=== PATIENT | female | born 1960 | race Caucasian/White ===

== ENCOUNTER → 2016-09-08 | Outpatient (CLI) | payer BC ==
[~2016-09-08] MED LIST: AMT25 PO; AMT50 PO; ASPEC325 PO; ASPI-113 PO; ATOR-22 PO; FLUO20CA34 PO; FLUO20CA35 PO; LISI-729 PO; LOSA1TAB PO; OXYC-57 PO; SIMV40TA2 PO
[2016-09-08 11:07] LABS: HEMATOCRIT 39.9 % (37-47); MEAN CELL VOLUME 89.9 fL (80-100); MEAN CORPUSCULAR HEMOGLOBIN 29.7 pg (25-34); MEAN CORPUSCULAR HGB CONC 33.1 g/dl (32-36); MEAN PLATELET VOLUME 9.1 fL (7.4-10.4); PLATELET COUNT 292 K/uL (130-400); RED BLOOD COUNT 4.44 M/uL (4.2-5.4); WHITE BLOOD COUNT 5.22 K/uL (4.8-10.8)
[2016-09-08 11:31] LABS: POTASSIUM 3.8 mmol/L (3.5-5.1)
== END | disposition home or self-care (01) ==
LOC: C.CPL 10:31
PROVIDERS: ATTEND Orthopaedic Surgery Sports Medicine
DX: Z01.810 Encounter for preprocedural cardiovascular examination (principal)

== ENCOUNTER → 2016-10-01 | Day surgery (SDC) | payer BC ==
[2016-09-29 11:33] VITALS: Ht 172.7 cm; Wt 76.8 kg
[~2016-10-01] VITALS: Ht 172.7 cm; Wt 76.8 kg
[~2016-10-01] MED LIST changes: -AMT25 PO; +BUPIVACAINE 0.5 % 5 MG/1 ML MPF 30ML VIAL ONE; +CEFAZOLIN 1000MG/55 ML D5W IV SCH; +CEFAZOLIN SOD 1 GM VIAL ONE; +CEFAZOLIN SOD 1000MG/55 ML D5W IV ONE; +DEXAMETHASONE SOD INJ 4 MG/ML VIAL ONE; +FENTANYL CITRATE INJ 50 MCG/1 ML 2 ML VIAL ONE; +LACTATED RINGER'S 1000ML 1,000 ML IV SCH; +LIDOCAINE HCL 1% 20 ML VIAL ONE; +LIDOCAINE HCL 2% 2 ML VIAL (20MG/ML) ONE; -LISI-729 PO; +MIDAZOLAM HCL 1 MG/ML 2ML VIAL ONE; +ONDANSETRON INJ 2 MG/ML 2 ML VIAL ONE; +OXYCODONE/ACETAMINOPHEN 5-325 TAB PO PRN; +PROPOFOL IV EMULSION 10 MG/ML 20 ML VIAL IV ONE; -SIMV40TA2 PO; +SODIUM CHLORIDE 0.9% 1000ML 1,000 ML IV SCH
--- NOTE | 2016-10-01 11:45 | History & Physical Bridge - [place] ---
H&P Re-Evaluation Bridge Note: I have examined the patient, reviewed the History & Physical and in the interval since the performance of the History & Physical I have noted the following changes of clinical significance: No changes noted
--- NOTE | 2016-10-01 15:50 | Discharge Instructions-SurgCtr ---
Discharge Instructions Date of Service Oct 01, 2016. 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 Post Anesthesia Instructions: If you have had General Anesthesia or IV Sedation: * Do not drive today. * Resume driving when surgeon permits. * Do not make important decisions or sign legal documents today. * Call surgeon for: 1. Temperature elevations greater than 101 degrees F. 2. Uncontrollable pain. 3. Excessive bleeding. 4. Persistent nausea and vomiting. 5. Medication intolerance (nausea, vomiting or rash). * For nausea and vomiting use only clear liquids such as: tea, soda, bouillon until nausea subsides, then gradually increase diet as tolerated. * If you have any concerns or questions, call your surgeon's office. If physician is unavailable and it is an emergency, call 911 or go to the nearest emergency room. . Instructions / Follow-Up Instructions / Follow-Up MEDICATIONS: * Resume previous medications unless instructed otherwise by your surgeon. * Always take pain medication on a full stomach or with food to avoid upset stomach. * Do not drink alcohol or drive while taking narcotics. * Ibuprofen or Tylenol may be taken if narcotic not needed. SPECIAL CARE INSTRUCTIONS: __ None _x_ Keep extremity elevated and iced x 48 hours; apply ice 20-30 minutes 8-10 times/day. May remove at night. __ Crutches __ May discard when able _x_ Brace/Post-op shoe __ 24 hrs/day __ Remove at night _x_ Dressing _x_ Maintain until seen in office, may shower with plastic over site __ Remove dressings in 24-48 hours and then may shower __ Cover incisions with band-aids after showering __ Do not remove steri-strips Call physician if chills or temperature rises above 102 degrees or pain unrelieved by prescribed pain medications. Office [phone] follow up in 2 weeks Diet Recommendations Home Diet: resume previous diet Procedures Procedures Performed: Right 1st Metatarsophalangeal Arthrodesis Pending Studies Studies pending at discharge: no Medical Emergencies . Who to Call and When: Medical Emergencies: If at any time you feel your situation is an emergency, please call 911 immediately. . Non-Emergent Contact Non-Emergency issues call your: Primary Care Provider, Surgeon . . "Provider Documentation" section prepared by Dalton Swanson.
[2016-10-01 16:22] VITALS: TEMP 36.8
--- NOTE | 2016-10-01 16:27 | [facility] Post Operative Brief Note ---
Immediate Operative Summary Operative Date Oct 01, 2016. Pre-Operative Diagnosis Osteoarthritis of Foot Joint Right Great Toe Post-Operative Diagnosis Same Procedure(s) Performed Right 1st Metatarsophalangeal Arthrodesis Surgeon Dr. Sellers Director Paid Media Surgeon(s) Maureen Swanson PA-C Estimated Blood Loss 20CC Findings Right 1st MTP DJD Specimens None Anesthesia General Complication(s) None Disposition Recovery Room / PACU
[2016-10-01 16:42] VITALS: BP 108/72; PULSE 89; O2SAT 98
--- NOTE | 2016-10-01 16:42 | Anesthesia Progress Nt - [facility] ---
Anesthesia Post Op Note Date & Time Oct 01, 2016 at 16:41 Vital Signs Pain Intensity: 0 Vital Signs Past 12 Hours Date Time Temp Pulse Resp B/P Pulse Ox O2 Delivery O2 Flow Rate FiO2 10/01/16 16:22 36.8 92 18 113/75 97 Room Air 10/01/16 16:20 125/75 10/01/16 16:17 86 11 10/01/16 16:17 85 11 99 10/01/16 16:16 37.1 98 Room Air 10/01/16 16:16 87 16 10/01/16 16:16 86 16 10/01/16 16:15 86 10 10/01/16 16:15 86 10 94 10/01/16 16:14 123/79 10/01/16 16:11 82 12 10/01/16 16:11 82 12 100 10/01/16 16:10 117/74 10/01/16 16:06 83 13 10/01/16 16:06 82 13 94 10/01/16 16:05 116/73 10/01/16 16:01 81 13 10/01/16 16:01 80 13 100 10/01/16 16:00 125/75 10/01/16 15:59 81 10 100 10/01/16 15:59 80 10 10/01/16 15:55 120/72 10/01/16 15:54 84 14 100 10/01/16 15:54 84 14 10/01/16 15:50 120/67 10/01/16 15:49 88 12 100 10/01/16 15:49 87 12 10/01/16 15:45 115/73 10/01/16 15:44 37.3 89 12 109/73 100 Mask 6 10/01/16 15:44 90 10/01/16 15:44 90 100 10/01/16 11:54 36.6 89 20 129/82 96 Room Air Notes Mental Status: alert / awake / arousable, participated in evaluation Pt Amnestic to Procedure: Yes Nausea / Vomiting: adequately controlled Pain: adequately controlled Airway Patency, RR, SpO2: stable & adequate BP & HR: stable & adequate Hydration State: stable & adequate Anesthetic Complications: no major complications apparent
--- NOTE | 2016-10-01 23:53 | OPERATIVE REPORT ---
DATE OF OPERATION: 10/01/2016 SURGEON: Dr. Sree Sellers. MILLER DISTILLERY: CLIVE Vallejo PREOPERATIVE DIAGNOSIS: Right first metatarsophalangeal joint degenerative joint disease. POSTOPERATIVE DIAGNOSIS: Same. PROCEDURE PERFORMED: Right first MTP joint arthrodesis. COMPLICATIONS: None. ESTIMATED BLOOD LOSS: 20 mL TOURNIQUET TIME: 86 minutes at 300 mmHg. ANESTHESIA: General. SPECIMENS: None. OPERATIVE INDICATIONS: The patient is a 56-year-old female who has had a long history of right first MTP joint pain and discomfort. She has been through extensive conservative treatment including medicines as well as injections. She continued to have persistent pain. She elected to proceed with arthrodesis. OPERATIVE FINDINGS: Operative findings revealed advanced right first MTP joint DJD. She had extensive osteophytes around the joint. She had grade 4 djee-ox-ldei disease. OPERATIVE IMPLANTS: Operative implants consisted of: 1. A titanium 4.0 partially threaded cannulated screw of 32 mm length. 2. A.L.P.S. 2.5 mm first MTP joint fusion plate. 3. 2.5 mm titanium locking screws, one of 16 mm length, one of 18 mm length, and one of 24 mm length. 4. 2.5 mm titanium nonlocking/cortical screws, two of 16 mm length and one of 22 mm length. 5. 2.5 titanium multidirectional locking screw of 22 mm length. OPERATIVE PROCEDURE: The patient was taken to the operating room, identified and placed on the operating table in supine position. All contact areas were appropriately padded. IV antibiotics were provided by anesthesia team. General anesthetic was implemented by anesthesia team. A right thigh tourniquet was then placed. The right ankle was then cleaned with some alcohol and ankle block was provided with 30 mL of a 50:50 combination of 0.5% Marcaine and 2% lidocaine. Right foot and leg were then prepped and draped in usual sterile fashion. The right leg was elevated and exsanguinated with Esmarch and tourniquet was placed at 300 mmHg. A longitudinal incision was made over the dorsal medial aspect of the MTP joint, beginning just proximal to the IP joint and extending over the MTP joint and over the first metatarsal. Sharp dissection was carried out through the subcutaneous tissues down to the level of the joint capsule. An incision was made in the joint capsule about 3 mm medially until the EHL tendon. I then dissected the joint capsule off the bone and off the osteophytes. I then did a synovectomy. I then removed the osteophytes around the metatarsal head as well as the proximal phalanx. I mobilized the great toe. Once this was complete, attention then drawn toward preparing the bone surfaces. A guidewire was placed in the central aspect of the metatarsal head. I then reamed this first with a 22 mm reamer, followed by the 20 mm reamer which fit most appropriately. We reamed this down to the subchondral bone and cancellous bone. I then removed the guidewire and used it to create several additional holes through the metatarsal head. Attention was then drawn to the proximal phalanx. The proximal phalanx was maximally flexed. A guidewire was placed in the central aspect of the proximal phalanx articular surface. I then used the 20 mm reamer to create an opposing surface for the fusion. We reamed through the subchondral bone to the bleeding bone. I then also took the guidewire out and used it to create several additional holes in the proximal phalanx for bleeding and bone healing. I then took the guidewire for the 4.0 cannulated screw set and placed it in the central aspect of the metatarsal head and angling proximally and medially, just proximal to the prominence of the metatarsal head to allow an oblique pass. I then withdrew this proximally, reduced the first MTP joint in appropriate position and then placed a guidewire across the joint. I made sure the toe was appropriately rotated and in a slight valgus and 10 degrees of dorsiflexion relative to the surface of the floor. We assessed the position and it appeared appropriate both fluoroscopically as well as clinically. I then placed a 4.0 x 32 mm partially threaded cannulated screw over this guidewire. This did provide nice compression of the fusion site. I then slightly contoured a 2.5 right A.L.P.S. first MTP joint fusion plate to the dorsal surface of the first MTP joint. It was fixed initially with a 2.5 cortical screw through the oblong hole. I made sure position was appropriate and then fixed it distally with 2 additional 2.5 cortical screws and 1 additional locking screw distally. I then fixed it proximally with 2 additional 2.5 locking screws and 1 variable angle locking screw. X-rays were brought in. Everything was appropriately positioned. Attention was then drawn toward closing. The wound was irrigated with copious amounts of normal saline. I did place some bone from the osteophytes around the fusion site, particularly laterally. I then closed the joint capsule with 2-0 Vicryl suture in a [id number] fashion. The tourniquet was then let down for a tourniquet time of 86 minutes. Hemostasis was assured with use of electrocautery. The subcutaneous tissues were then closed with 2-0 Vicryl suture in a buried interrupted fashion. Skin was closed with 4-0 nylon suture in a horizontal mattress fashion. The foot was then cleaned and dried, and a sterile dressing with Xeroform, 4 x 4's, Uri wrap, followed by sterile cast padding and Coban tape, followed by an IPost shoe were applied. The patient then brought out of general anesthesia and transferred to the recovery room in stable condition. The patient tolerated the procedure well with no complications. All needle and sponge counts were correct at the end of the operation. I attest to the content of the Intraoperative Record and any orders documented therein. Any exceptio ns are noted below.
== END | disposition home or self-care (01) ==
LOC: X.SURG 11:37
PROVIDERS: ATTEND Orthopaedic Surgery Sports Medicine
DX: M19.071 Primary osteoarthritis, right ankle and foot (principal); I10 Essential (primary) hypertension; E78.5 Hyperlipidemia, unspecified; Z98.890 Other specified postprocedural states

== ENCOUNTER → 2017-05-25 | Outpatient (CLI) | payer BC ==
[~2017-05-25] MED LIST changes: -ASPI-113 PO; -BUPIVACAINE 0.5 % 5 MG/1 ML MPF 30ML VIAL ONE; -CEFAZOLIN 1000MG/55 ML D5W IV SCH; -CEFAZOLIN SOD 1 GM VIAL ONE; -CEFAZOLIN SOD 1000MG/55 ML D5W IV ONE; -DEXAMETHASONE SOD INJ 4 MG/ML VIAL ONE; -FENTANYL CITRATE INJ 50 MCG/1 ML 2 ML VIAL ONE; -LACTATED RINGER'S 1000ML 1,000 ML IV SCH; -LIDOCAINE HCL 1% 20 ML VIAL ONE; -LIDOCAINE HCL 2% 2 ML VIAL (20MG/ML) ONE; -MIDAZOLAM HCL 1 MG/ML 2ML VIAL ONE; -ONDANSETRON INJ 2 MG/ML 2 ML VIAL ONE; -OXYC-57 PO; -OXYCODONE/ACETAMINOPHEN 5-325 TAB PO PRN; -PROPOFOL IV EMULSION 10 MG/ML 20 ML VIAL IV ONE; -SODIUM CHLORIDE 0.9% 1000ML 1,000 ML IV SCH
--- NOTE | 2017-05-25 15:03 | MAMMOGRAPHY REPORT ---
UNILATERAL RIGHT DIGITAL DIAGNOSTIC MAMMOGRAM TOMOSYNTHESIS AND TARGETED RIGHT ULTRASOUND: 05/25/2017 CLINICAL HISTORY: 57-year-old woman called back from screening mammography for a possible area of arc hitectural distortion in the right breast. TECHNIQUE: Spot compression right CC and MLO tomosynthesis images and reconstructed C-view were obtai lucila. COMPARISON: Comparison is made to exams dated: 05/12/2017 mammogram, 05/08/2016 mammogram, 5 mammogram, 03/20/2014 mammogram, 03/17/2013 mammogram, and 03/09/2012 mammogram - [facility]. BREAST COMPOSITION: The tissue of the right breast is almost entirely fatty. FINDINGS: There is persistent small focal area of architectural distortion in the upper outer middle one third of the right breast, 5.8 cm distal to the nipple seen on CC spot compression tomosynthesis slice 34 and MLO spot compression tomosynthesis slice 34. No microcalcification, other areas of dis tortion or obvious masses seen. Further evaluation with ultrasound was performed. Targeted ultrasound was performed in the right upper outer quadrant. No definite sonographic correla te for the mammographic finding. No subtle area of architectural distortion or suspicious solid or c ystic masses seen. The distortion remains indeterminate and definitive characterization with a stere otactic tomosynthesis guided biopsy is recommended. IMPRESSION: ACR BI-RADS CATEGORY 4: SUSPICIOUS, TARGETED ULTRASOUND ACR BI-RADS CATEGORY 4: SUSPICIO US 1. Right breast stereotactic tomosynthesis guided biopsy is recommended for a small subtle focal are a of architectural distortion in the upper outer middle one third of the right breast. The patient i s currently taking aspirin for prior stroke and I would recommend remaining on aspirin for the biopsy , noting that the patient may have more bleeding and bruising at the time of biopsy. These results and recommendations were discussed with the patient at the time of the exam. She tenta tively scheduled the biopsy prior to leaving our department. Approximately 10% of breast cancers are not detected with mammography. A negative mammographic report should not delay biopsy if a clinically suggestive mass is present. Jo-Ann Robertson M.D. ay/:05/25/2017 11:49:59 It Corporate Recruiter: Meghan PINEDA(Valarie)(M), [facility] letter sent: Abnormal 4/5 BI-RADS Code: ACR BI-RADS Category 4: Suspicious Ultrasound BI-RADS: ACR BI-RADS Category 4: Suspici ous
== END | disposition home or self-care (01) ==
LOC: C.MAMM 08:32
PROVIDERS: ATTEND Family Medicine
DX: R92.8 Other abnormal and inconclusive findings on diagnostic imaging of breast (principal)

== ENCOUNTER → 2017-06-08 | Outpatient (CLI) | payer BC ==
--- NOTE | 2017-06-08 13:15 | Discharge Instructions ---
Discharge Instructions Procedure Procedure Date: Jun 08, 2017. Reason for visit: Right Distortion. Discharge Discharge Date: Jun 08, 2017. Discharge Diagnosis: post right breast stereotactic 3-D guided biopsy Medications Restart Stopped Medication(s): Continue Aspirin as per directed Instructions Activity Recommendations: Additional Limitations (see below) Return to School/Work: no limitations Recommended Home Diet: No Limitations Provider Instructions: ACTIVITY RECOMMENDATIONS: * No lifting, pushing, pulling or exercising the affected side for three days. RETURN TO SCHOOL/WORK: * You may return to work/school after the procedure, but do not perform any strenuous activities for 24 to 48 hours. MEDICATIONS: * Tylenol (two 325 mg) every four to six hours if needed for mild pain (if not allergic to Tylenol). DIET: * Resume previous diet. SPECIAL CARE INSTRUCTIONS: * Keep biopsy site dry for 24 hours. May shower after 24 hours, but do not soak (bathe) incision. * May remove Tegaderm (plastic patch) tomorrow AFTER showering. * Leave the steri-strips on for one week. Allow the steri-strips to fall off by themselves. If not off after one week, you may remove them. You may place a Bandaid crosswise over the strips, if desired. * Apply ice 10 minutes on and 10 minutes off as needed. * Wear a bra at bedtime to sleep more comfortably for 2-3 days. * Your referring physician should have the results after approximately 5 to 7 business days. * Call for unusual bleeding, fever, drainage, etc or if you have any questions call [phone] during normal business hours or after hours call Dr Robertson, . FOLLOW UP VISIT: Follow-up with Referring Physician as scheduled. Allergies Coded Allergies: No Known Allergies (Unverified , 10/01/16) Rozina Gore Recommendations: Call your doctor if: * Temperature above 101 degrees * Pain not relieved by pain medicine ordered * There is increased drainage or redness from any incision * You have any unanswered questions or concerns. Your Doctors Instructions noted above were prepared by provider Jo-Ann Robertson. Patient Signature Section: Patient Instructions Signature Page Lynda Pat Patient (or Guardian) Signature/Date: I have read and understand the instructions given to me by my caregivers. Caregiver/RN/Doctor Signature/Date: The above-named patient and/or guardian has received patient instructions on this date. + Original Patient Signature Page (only) stays with chart. Please make copy for patient.
--- NOTE | 2017-06-08 15:12 | MAMMOGRAPHY REPORT ---
STEREOTACTIC GUIDED BIOPSY RIGHT BREAST: 06/08/2017 CLINICAL HISTORY: Patient presents for stereotactic tomosynthesis guided biopsy of a small focal area of architectural distortion in the lateral right breast. She is currently on 325 mg aspirin. COMPARISON: Comparison is made to exams dated: 05/25/2017 ultrasound, 05/25/2017 mammogram, 05/12/20 17 mammogram, 05/08/2016 mammogram, 05/07/2015 mammogram, and 03/20/2014 mammogram - [facility]. PATIENT CONSENT: After explaining the risks, benefits and alternatives of the procedure to the patien t, informed consent was obtained both verbally and in writing. Specific risks include: Bleeding, inf ection, puncture of adjacent structure, pain, nontarget biopsy, sampling error, metal allergy and med ication reaction. PROCEDURE DESCRIPTION: A time-out was performed and the right breast was confirmed as the site of bio psy. The patient was placed prone on the stereotactic biopsy table and the breast was placed in CC fr om above compression. A event services manager image was obtained that demonstrated the subtle focal area of architectural technician ural distortion in question, which is amenable to stereotactic tomosynthesis guided biopsy. Then a C C tomosynthesis view was performed which redemonstrates the area of distortion in question. The shey st was rolled to displaced a blood vessel overlying the area of distortion. The skin was prepped wit h Betadine. 1% Lidocaine with and without epinipherine was administered as local anesthesia. A small skin incision was made. Through the incision, the needle was inserted to the depth determined by the computer. 7 samples were obtained using a Soysuperiva 9-gauge vacuum-assisted biopsy device. After the last biopsy sample the patient reported she felt nauseated and hot therefore a metallic marker wa s placed at the site. A final CC tomosynthesis postprocedure image was obtained, which demonstrated a n air pocket and biopsy marker clip in the area of previously observed distortion, which is no longer seen. This suggests adequate tissue sampling. There was no immediate complication. Hemostasis was achieved after several minutes of manual compression. The samples were sent to pathology in an appro priately labeled container. Post procedure right CC and ML tomosynthesis images were obtained. There is a 2.6 x 1.8 cm hematoma and a new dumbbell-shaped biopsy marker clip at the site of the biopsy in the upper outer middle one third of the right breast. No residual architectural distortion is appreciated. The patient was cou nseled to apply ice and pressure to the area throughout the remainder of the afternoon but otherwise continue her aspirin as recommended by her doctor. IMPRESSION: STEREOTACTIC GUIDED BIOPSY Status post right breast stereotactic tomosynthesis guided biopsy of a small focal area of architectu ral distortion in the upper outer middle one third of the right breast, with biopsy marker placed at the site. The patient will receive notification of the biopsy results from her referring physician. Jo-Ann Robertson M.D. ay/:06/08/2017 13:38:36 Attending Technologist: Keke PINEDA(R)(M), [facility] Liquid Loader: Herberth IPNEDA(R)(M), [facility]
--- NOTE | 2017-06-08 15:13 | MAMMOGRAPHY REPORT ---
UNILATERAL RIGHT DIGITAL DIAGNOSTIC MAMMOGRAM TOMOSYNTHESIS WITH CAD: 06/08/2017 CLINICAL HISTORY: Status post stereotactic tomosynthesis guided biopsy of a small focal area of archi tectural distortion in the lateral right breast. Please refer to report from right breast stereotactic tomosynthesis guided biopsy performed at the [facility] time for full detail. IMPRESSION: POST PROCEDURE IMAGING FOR MARKER PLACEMENT Please refer to report from right breast stereotactic tomosynthesis guided biopsy performed at the [facility] time for full detail. Approximately 10% of breast cancers are not detected with mammography. A negative mammographic report should not delay biopsy if a clinically suggestive mass is present. Jo-Ann Robertson M.D. ay/:06/08/2017 13:14:07 Stock Letterer: Herberth PINEDA(R)(M), [facility] BI-RADS Code: Post Procedure Imaging For Marker Placement
== END | disposition home or self-care (01) ==
LOC: C.MAMM 12:38
PROVIDERS: ATTEND Family Medicine
DX: R92.8 Other abnormal and inconclusive findings on diagnostic imaging of breast (principal); N64.89 Other specified disorders of breast; N60.91 Unspecified benign mammary dysplasia of right breast